=== PATIENT | female | born 1945 | race American Indian/Alaskan Native ===

== ENCOUNTER 2016-09-07 18:01 | Inpatient (IN) | payer MEDICARE ==
[2016-09-07] MEDS ORDERED: PROVENTIL IH ONE (18:28)
--- NOTE | 2016-09-07 18:46 | Emergency Department Report ---
Chief Complaint: Dyspnea/Respdistress Stated Complaint: DIFF BREATHING Time Seen by Provider: 09/07/16 18:42 - HPI History of Present Illness: 71 /o female complain of shortness of breath x 2 days .pt state she smoke cigarettes for more than 30 years.pt current on 02 at 2l at home .pt was current using albuterol inhaler without any relief . - ROS Review of Systems: per HPI - Exam Vital Signs: Vital Signs 09/07/16 18:12 Temperature 98.2 F Pulse Rate 24 L Respiratory 24 Rate Blood Pressure 172/93 O2 Sat by Pulse 86 Oximetry Physical Exam: GENERAL: The patient is well-developed and well-nourished. Patient is in NAD. HENT: Normocephalic. Atraumatic. Patient has moist mucous membranes. Throat: No erythema, swelling or exudates. EYES: Extraocular motions are intact, PERRL NECK: Supple. No meningitic signs are noted. There is no adenopathy noted. CHEST/LUNGS: wheezing, noted bilateral . There is no respiratory distress noted. HEART/CARDIOVASCULAR: Regular rate and rhythm. Normal S1 S2. No murmurs, rubs , clicks, or gallops. ABDOMEN: Abdomen is soft, nontender.. Bowel sounds normoactive. There is no abdominal distention. Negative rebound tenderness. : Deferred. SKIN: There is no rash. There is no edema. There is no diaphoresis. NEURO: The patient is A&Ox3. The patient has no focal neurologic deficits. MUSCULOSKELETAL: There is no tenderness or deformity. There is no limitation range of motion. PSYCH: Pt has appropriate mood and affect. MSE screening note: Focused history and physical exam performed. Due to findings the following was ordered: ED Disposition for MSE Condition: Stable
[2016-09-07 19:25] LABS: Basophils % (Auto) 0.8 % (0.0-1.8); Eosinophils % (Auto) 2.6 % (0.0-4.3); Hematocrit 42.1 % (30.3-42.9); Hemoglobin 13.8 gm/dl (10.1-14.3); Mean Corpuscular HGB Conc 33 % (30-34); Mean Corpuscular Hemoglobin 30 pg (28-32); Mean Corpuscular Volume 92 fl (79-97); Platelet Count 242 K/mm3 (140-440); Red Blood Count 4.58 M/mm3 (3.65-5.03); Red Cell Distribution Width 13.1 % (13.2-15.2); White Blood Count 13.5 K/mm3 (4.5-11.0)
[2016-09-07] MEDS ORDERED: XOPENEX IH ONE (19:29)
[2016-09-07] MEDS ORDERED: MAGNESIUM SULFATE 2GM/50ML 50 ML IV ONE (19:29)
--- NOTE | 2016-09-07 19:36 | Emergency Department Report ---
ED Shortness of Breath HPI - General Chief Complaint: Dyspnea/Respdistress Stated Complaint: DIFF BREATHING Time Seen by Provider: 09/07/16 19:22 Source: patient Mode of arrival: Wheelchair Limitations: No Limitations - History of Present Illness Initial Comments: 71-year-old female with past medical history of COPD without previous intubations presents to the hospital complaints of shortness of breath for the past 2-3 days. Patient using home nebulized treatments without relief. Positive cough productive of clear sputum. No fever reported. No pain reported. Patient is dependent on 2 L O2 as needed but most recently has been using it continuously. 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 Rich on the . Currently on prednisone 5 mg daily. PMD: Dr. Jackson - Related Data Home Medications Medication Instructions Recorded Confirmed Last Taken Cetirizine HCl [ZyrTEC] 10 mg PO DAILY PRN 09/22/14 09/07/16 Unknown Previous Rx's Medication Instructions Recorded Last Taken Type ALBUTEROL NEB's [Proventil 0.083% 2.5 mg INHALATION Q4-6H PRN #100 ml 09/25/14 Unknown Rx NEBS] Albuterol Sulfate [Proventil HFA] 1 - 2 puff IH Q4H PRN #1 hfa.aer.ad 09/25/14 Unknown Rx predniSONE [Deltasone] 60 mg PO QDAY #20 tablet 01/08/15 Unknown Rx Allergies Allergy/AdvReac Type Severity Reaction Status Date / Time tomato Allergy Unknown Verified 09/22/14 10:52 ipratropium bromide AdvReac Unknown Verified 01/03/15 07:11 [From [facility]] ED Review of Systems ROS: Stated complaint: DIFF BREATHING Other details as noted in HPI Comment: All other systems reviewed and negative Other: Constitutional: No fevers chills Eyes: No eye pain visual changes ENT: No ear pain or throat pain Neck: Denies pain Respiratory: As per HPI Cardiovascular: Denies chest pain, palpitations, syncope GI: Denies abdominal pain, nausea, vomiting, diarrhea : Denies dysuria, urinary frequency, or urgency Musculoskeletal: Denies back pain Skin: Denies rash, lesions, erythema Neurologic: Denies headache, numbness, weakness Psychiatric: Denies suicidal ideation, hallucinations ED Past Medical Hx - Past Medical History Hx Hypertension: Yes Hx Diabetes: Yes Hx Asthma: Yes Hx COPD: Yes - Surgical History Past Surgical History?: No - Social History Smoking Status: Former Smoker Substance Use Type: Alcohol - Medications Home Medications: Home Medications Medication Instructions Recorded Confirmed Last Taken Type Cetirizine HCl [ZyrTEC] 10 mg PO DAILY PRN 09/22/14 09/07/16 Unknown History ALBUTEROL NEB's [Proventil 0.083% 2.5 mg INHALATION Q4-6H PRN #100 ml 09/25/14 09/07/16 Unknown Rx NEBS] Albuterol Sulfate [Proventil HFA] 1 - 2 puff IH Q4H PRN #1 hfa.aer.ad 09/25/14 09/07/16 Unknown Rx predniSONE [Deltasone] 60 mg PO QDAY #20 tablet 01/08/15 09/07/16 Unknown Rx ED Physical Exam - General Limitations: No Limitations - Other Other exam information: General: No limitations, patient is alert in no acute distress Head exam: Atraumatic, normocephalic Eyes exam: Normal appearance, pupils equal reactive to light, extraocular movements intact ENT: Moist mucous membrane, normal oropharynx Neck exam: Normal inspection, full range of motion, no meningismus nontender Respiratory exam: Poor air movement, tachypnea, purse lip breathing, respiratory respiratory wheezing, accessory muscle use. (After albuterol 5 mg in the ED) Cardiovascular: Tachycardic regular rhythm Abdomen: Soft, nondistended, and nontender, with normal bowel sounds, no rebound, or guarding Extremity: Full range of motion normal inspection no deformity Back: Normal Inspection, full range of motion, no tenderness Neurologic: Alert, oriented x3, cranial nerves intact, no motor or sensory deficit Psychiatric: normal affect, normal mood Skin: Warm, dry, intact ED Course Vital Signs 09/07/16 09/07/16 09/07/16 18:12 19:00 19:20 Temperature 98.2 F Pulse Rate 24 L Pulse Rate [ 101 H 101 H Anterior Bilateral Throughout] Pulse Rate [ Posterior Bilateral Throughout] Respiratory 24 Rate Respiratory 28 H 28 H Rate [Anterior Bilateral Throughout] Respiratory Rate [Posterior Bilateral Throughout] Blood Pressure 172/93 Blood Pressure [Left] O2 Sat by Pulse 86 Oximetry 09/07/16 09/07/16 09/07/16 19:50 20:04 20:14 Temperature Pulse Rate 112 H Pulse Rate [ 110 H 109 H Anterior Bilateral Throughout] Pulse Rate [ 110 H 109 H Posterior Bilateral Throughout] Respiratory 16 Rate Respiratory 27 H 29 H Rate [Anterior Bilateral Throughout] Respiratory 27 H 29 H Rate [Posterior Bilateral Throughout] Blood Pressure Blood Pressure 171/81 [Left] O2 Sat by Pulse 100 Oximetry - Reevaluation(s) Reevaluation #1: 09/07/16 20:52 Patient treated with Solu-Medrol, Xopenex, albuterol, and magnesium in the ED with improvement in symptoms but still persistently wheezing requiring BiPAP support 09/07/16 20:52 ED Medical Decision Making - Lab Data Result diagrams: 09/07/16 18:59 09/07/16 18:59 Lab Results 09/07/16 09/07/16 09/07/16 Range/Units 18:59 18:59 18:59 WBC 13.5 H (4.5-11.0) K/mm3 RBC 4.58 (3.65-5.03) M/mm3 Hgb 13.8 (10.1-14.3) gm/dl Hct 42.1 (30.3-42.9) % MCV 92 (79-97) fl MCH 30 (28-32) pg MCHC 33 (30-34) % RDW 13.1 L (13.2-15.2) % Plt Count 242 (140-440) K/mm3 Lymph % (Auto) 18.6 (13.4-35.0) % [place] % (Auto) 7.1 (0.0-7.3) % Eos % (Auto) 2.6 (0.0-4.3) % Baso % (Auto) 0.8 (0.0-1.8) % Lymph # 2.5 (1.2-5.4) K/mm3 [place] # 1.0 H (0.0-0.8) K/mm3 Eos # 0.4 (0.0-0.4) K/mm3 Baso # 0.1 (0.0-0.1) K/mm3 Seg Neutrophils % 70.9 H (40.0-70.0) % Seg Neutrophils # 9.5 H (1.8-7.7) K/mm3 Sodium 140 (137-145) mmol/L Potassium 4.5 (3.6-5.0) mmol/L Chloride 98.2 (98-107) mmol/L Carbon Dioxide 29 (22-30) mmol/L Anion Gap 17 mmol/L BUN 10 (7-17) mg/dL Creatinine 0.6 L (0.7-1.2) mg/dL Estimated GFR > 60 ml/min BUN/Creatinine Ratio 16.66 % Glucose 110 H (65-100) mg/dL Calcium 9.6 (8.4-10.2) mg/dL Total Creatine Kinase 90 (30-135) units/L CK-MB (CK-2) 3.0 (0.0-4.0) ng/mL CK-MB (CK-2) Rel Index 3.3 (0-4) Troponin T < 0.010 (0.00-0.029) ng/mL - EKG Data -: EKG Interpreted by Me (sinus tach 114 but atrial enlargement low voltage QRS septal infarct) - EKG Data When compared to previous EKG there are: changes noted (compared to 01/03/2015 lateral QRS segment more positive at that time) - Radiology Data Radiology results: image reviewed (chest x-ray portable: No acute finding) - Medical Decision Making Plan to admit patient to the hospital for further management of acute COPD exacerbation and continue BiPAP support at this time - Differential Diagnosis COPD, pneumonia, bronchitis, CHF Critical Care Time: No Critical care attestation.: If time is entered above; I have spent that time in minutes in the direct care of this critically ill patient, excluding procedure time. ED Disposition Clinical Impression: Asthma exacerbation in COPD HTN (hypertension) Qualifiers: Hypertension type: essential hypertension Qualified Code(s): I10 - Essential ( primary) hypertension Disposition: OP ADMITTED IP TO THIS HOSP Is pt being admited?: Yes Condition: Stable Instructions: Hypertension (ED) Time of Disposition: 20:54 (Dr Echeverria/hosp)
[2016-09-07 19:43] LABS: BUN/Creatinine Ratio 16.66; Blood Urea Nitrogen 10 mg/dL (7-17); Calcium 9.6 mg/dL (8.4-10.2); Carbon Dioxide 29 mmol/L (22-30); Chloride 98.2 mmol/L (98-107); Glucose 110 mg/dL (65-100); Potassium 4.5 mmol/L (3.6-5.0); Sodium 140 mmol/L (137-145)
[2016-09-07 19:48] LABS: Creatine Kinase 90 units/L (30-135)
[2016-09-07 19:53] LABS: Anion Gap 17 mmol/L
--- NOTE | 2016-09-07 22:59 | History and Physical Report ---
History of Present Illness Date of examination: 09/07/16 History of present illness: 71-year-old woman history of hypertension, diabetes, COPD comes emergency room with complaints of shortness breath 2 days. She was recently treated for COPD exacerbation, she is on a tapered dose of steroids. She took several rounds of nebulizer treatments without any success Patient denies chest pain, palpitation, cough, abdominal pain, hematochezia, dysuria, frequency, focal weakness, dysarthria, fever chills, polydipsia polyuria, hot or cold intolerance, easy bruisability, or rash or bleeding from mucosal membrane, rhinorrhea, epistaxis, earache, tinnitus, blurry vision, eye discharge, anxiety, depression. Other review of systems negative PAST SURGICAL HISTORY: None SOCIAL HISTORY: Denies alcohol, tobacco, drugs FAMILY HISTORY: Hypertension Medications and Allergies Allergies Allergy/AdvReac Type Severity Reaction Status Date / Time tomato Allergy Unknown Verified 09/22/14 10:52 ipratropium bromide AdvReac Unknown Verified 01/03/15 07:11 [From [facility]] Home Medications Medication Instructions Recorded Confirmed Last Taken Type Cetirizine HCl [ZyrTEC] 10 mg PO DAILY PRN 09/22/14 09/07/16 Unknown History ALBUTEROL NEB's [Proventil 0.083% 2.5 mg INHALATION Q4-6H PRN #100 ml 09/25/14 09/07/16 Unknown Rx NEBS] Albuterol Sulfate [Proventil HFA] 1 - 2 puff IH Q4H PRN #1 hfa.aer.ad 09/25/14 09/07/16 Unknown Rx predniSONE [Deltasone] 60 mg PO QDAY #20 tablet 01/08/15 09/07/16 Unknown Rx Losartan 100 mg PO DAILY 09/07/16 09/07/16 Unknown History Zocor TAB 10 mg PO HS 09/07/16 09/07/16 Unknown History Exam - Physical Exam Narrative exam: Gen. appearance: Patient lying in bed, no apparent distress HEENT: Normocephalic, atraumatic, pupils equally round and reactive to light, extraocular movement intact, and no sclericterus,. No JVD or thyromegaly or nodule,neck supple, no carotid bruit ,mucous membranes moist, no exudate or erythema Heart: S1, S2, regular rate and rhythm Lungs: Wheezing bilaterally, breathing comfortable Abdomen: Positive bowel sounds, nontender, nondistended, no organomegaly Extremity: No edema, cyanosis, clubbing Skin: No rash, nodules, warm, dry Neuro: Oriented 3, cranial nerves II-12 intact, speech is fluent, motor and sensory intact - Constitutional Vitals: Temp Pulse Resp BP Pulse Ox 98.2 F 107 H 16 133/83 95 09/07/16 18:12 09/07/16 21:05 09/07/16 21:05 09/07/16 21:05 09/07/16 21:05 Results - Labs CBC & Chem 7: 09/08/16 05:05 09/08/16 05:05 Labs: Abnormal lab results 09/07/16 09/07/16 Range/Units 18:59 18:59 WBC 13.5 H (4.5-11.0) K/mm3 RDW 13.1 L (13.2-15.2) % [place] # 1.0 H (0.0-0.8) K/mm3 Seg Neutrophils % 70.9 H (40.0-70.0) % Seg Neutrophils # 9.5 H (1.8-7.7) K/mm3 Creatinine 0.6 L (0.7-1.2) mg/dL Glucose 110 H (65-100) mg/dL - Imaging and Cardiology EKG: image reviewed Chest x-ray: image reviewed Assessment and Plan COPD exacerbation Hypertension Diabetes type 2 Admits medicine Start high-dose IV steroids, nebulizer treatment, check cardiac enzymes Check fingersticks and initiate insulin sliding scale Continue appropriate outpatient medication and start DVT prophylaxis
[2016-09-08] MEDS ORDERED: ZOFRAN IV PRN (03:33)
[2016-09-08] MEDS ORDERED: TYLENOL PO PRN (03:33)
[2016-09-08] MEDS ORDERED: D50W (25GM) IV PRN (03:33)
[2016-09-08] MEDS ORDERED: MILK OF MAGNESIA PO PRN (03:33)
[2016-09-08] MEDS ORDERED: DULCOLAX PR PRN (03:33)
[2016-09-08 05:30] LABS: Basophils % (Auto) 0.5 % (0.0-1.8); Hematocrit 39.6 % (30.3-42.9); Hemoglobin 13.1 gm/dl (10.1-14.3); Mean Corpuscular HGB Conc 33 % (30-34); Mean Corpuscular Hemoglobin 30 pg (28-32); Mean Corpuscular Volume 91 fl (79-97); Platelet Count 209 K/mm3 (140-440); Red Blood Count 4.34 M/mm3 (3.65-5.03); Red Cell Distribution Width 13.3 % (13.2-15.2); White Blood Count 8.2 K/mm3 (4.5-11.0)
[2016-09-08 05:46] LABS: Blood Urea Nitrogen 14 mg/dL (7-17); Calcium 9.2 mg/dL (8.4-10.2); Carbon Dioxide 31 mmol/L (22-30); Chloride 97.8 mmol/L (98-107); Glucose 197 mg/dL (65-100); Potassium 4.7 mmol/L (3.6-5.0); Sodium 139 mmol/L (137-145)
[2016-09-08 05:47] LABS: Creatine Kinase MB 3.1 ng/mL (0.0-4.0)
[2016-09-08 05:50] LABS: Creatine Kinase 72 units/L (30-135)
[2016-09-08 06:01] LABS: Anion Gap 15 mmol/L
[2016-09-08] MEDS: NOVOLOG SUB-Q SCH ×4 (08:00→22:51)
--- NOTE | 2016-09-08 08:19 | Progress Note ---
Assessment and Plan Assessment and plan: 1-year-old woman history of hypertension, diabetes, COPD comes emergency room with complaints of shortness breath 2 days. She was recently treated for COPD exacerbation, she is on a tapered dose of steroids. She took several rounds of nebulizer treatments without any success Patient denies chest pain, palpitation, cough, abdominal pain, hematochezia, dysuria, frequency, focal weakness, dysarthria, fever chills, polydipsia polyuria, hot or cold intolerance, easy bruisability, or rash or bleeding from mucosal membrane, rhinorrhea, epistaxis, earache, tinnitus, blurry vision, eye discharge, anxiety, depression. Other review of systems negative * COPD Exacerbation * Continue high dose steroid, cxr reviewed, no evidence of infection. * Received magnesium sulfate in the ED also was on BiPAP which is on standby. * Question post nasal drip syndrome. Will add inhaled corticosteroid. * Pulmonary consultation follows with Dr. Rich's group. * Uncontrolled HTN * Medication reconcilled. Restarted home dose of Losartan. Added PRN Hydralazine * Diabetes Mellitus type 2-Uncontrolled * Due to steriods, will continue with insuline coverage. Adjust as needed * Leukocytosis- Resolved * Chronic rhinorrhea * Acute on chronic hypoxic respiratory failure * Chronically on oxygen at 2 L per nasal cannula. We'll continue oxygen at this time and taper down to normal level for her. * DVT/GI prophylaxis * Case discussed in detail with nursing staff and patient. History Interval history: f/u COPD exacerbation Patient seen and examined this morning in [id number] respiratory distress secondary to COPD exacerbation. Reports mild improvement compared to yesterday and unable to speak although not complete sentences still. Denies any fever, denies any sick contact, reports chronic rhinorrhea Denies any chest pain, nausea, vomiting, diarrhea No fever noted blood pressure controlled No adverse events reported to me by nursing staff Hospitalist Physical - Physical exam Narrative exam: VITAL SIGNS: Reviewed. GENERAL: The patient appeared well nourished and normally developed. In mild respiratory distress Vital signs as documented. HEAD: No signs of head trauma. EYES: Pupils are equal. Extraocular motions intact. EARS: Hearing grossly intact. MOUTH: Oropharynx is normal. NECK: No adenopathy, no JVD. CHEST: Chest with expiratory wheezing bilaterally no rales or rhonchi. CARDIAC: Regular rate and rhythm. S1 and S2, without murmurs, gallops, or rubs. VASCULAR: No Edema. Peripheral pulses normal and equal in all extremities. ABDOMEN: Soft, without detectable tenderness. No sign of distention. No rebound or guarding, and no masses palpated. Bowel Sounds normal. MUSCULOSKELETAL: Good range of motion of all major joints. Extremities without clubbing, cyanosis or edema. NEUROLOGIC EXAM: Alert and oriented x 3. No focal sensory or strength deficits. Speech normal. Follows commands. PSYCHIATRIC: Mood normal. SKIN: Age appropriate wrinkles and blemishes. - Constitutional Vitals: Temp Pulse Resp BP Pulse Ox 97.3 F L 80 16 178/77 98 09/08/16 07:00 09/08/16 07:00 09/08/16 07:00 09/08/16 07:00 09/08/16 07:00 Results - Labs CBC & Chem 7: 09/08/16 05:05 09/08/16 05:05 Labs: Laboratory Last Values WBC 8.2 K/mm3 (4.5-11.0) 09/08/16 05:05 RBC 4.34 M/mm3 (3.65-5.03) 09/08/16 05:05 Hgb 13.1 gm/dl (10.1-14.3) 09/08/16 05:05 Hct 39.6 % (30.3-42.9) 09/08/16 05:05 MCV 91 fl (79-97) 09/08/16 05:05 MCH 30 pg (28-32) 09/08/16 05:05 MCHC 33 % (30-34) 09/08/16 05:05 RDW 13.3 % (13.2-15.2) 09/08/16 05:05 Plt Count 209 K/mm3 (140-440) 09/08/16 05:05 Lymph % (Auto) 10.6 % (13.4-35.0) L 09/08/16 05:05 [place] % (Auto) 4.6 % (0.0-7.3) 09/08/16 05:05 Eos % (Auto) 0.0 % (0.0-4.3) 09/08/16 05:05 Baso % (Auto) 0.5 % (0.0-1.8) 09/08/16 05:05 Lymph # 0.9 K/mm3 (1.2-5.4) L 09/08/16 05:05 [place] # 0.4 K/mm3 (0.0-0.8) 09/08/16 05:05 Eos # 0.0 K/mm3 (0.0-0.4) 09/08/16 05:05 Baso # 0.0 K/mm3 (0.0-0.1) 09/08/16 05:05 Seg Neutrophils % 84.3 % (40.0-70.0) H 09/08/16 05:05 Seg Neutrophils # 6.9 K/mm3 (1.8-7.7) 09/08/16 05:05 Sodium 139 mmol/L (137-145) 09/08/16 05:05 Potassium 4.7 mmol/L (3.6-5.0) 09/08/16 05:05 Chloride 97.8 mmol/L (98-107) L 09/08/16 05:05 Carbon Dioxide 31 mmol/L (22-30) H 09/08/16 05:05 Anion Gap 15 mmol/L 09/08/16 05:05 BUN 14 mg/dL (7-17) 09/08/16 05:05 Creatinine 0.7 mg/dL (0.7-1.2) 09/08/16 05:05 Estimated GFR > 60 ml/min 09/08/16 05:05 BUN/Creatinine Ratio 20.00 % 09/08/16 05:05 Glucose 197 mg/dL (65-100) H 09/08/16 05:05 POC Glucose 152 (70-105) H 09/08/16 07:17 Calcium 9.2 mg/dL (8.4-10.2) 09/08/16 05:05 Total Creatine Kinase 72 units/L (30-135) 09/08/16 05:05 CK-MB (CK-2) 3.1 ng/mL (0.0-4.0) 09/08/16 05:05 CK-MB (CK-2) Rel Index 4.3 (0-4) H 09/08/16 05:05 Troponin T < 0.010 ng/mL (0.00-0.029) 09/08/16 05:05 - Imaging and Cardiology EKG: image reviewed (personally reviewed sinus tachycardia) Chest x-ray: image reviewed (personally reviewed no evidence of infectious process)
[2016-09-08] MEDS ORDERED: APRESOLINE IV PRN (09:00)
[2016-09-08] MEDS: PROVENTIL IH SCH ×4 (09:10→23:39)
[2016-09-08] MEDS: COZAAR PO SCH (10:00)
[2016-09-08] MEDS: LOVENOX SUB-Q SCH (10:00)
--- NOTE | 2016-09-08 10:00 | XRay Report ---
AP CHEST :09/07/16 CLINICAL: Shortness of breath and wheezing. COMPARISON:01/03/15 FINDINGS: Normal heart and pulmonary vasculature. The lungs are normally expanded and clear. The bones and soft tissues are normal. IMPRESSION: Normal chest.
[2016-09-08 11:52] LABS: Creatine Kinase MB 2.9 ng/mL (0.0-4.0)
[2016-09-08 11:55] LABS: Creatine Kinase 76 units/L (30-135)
[2016-09-08] MEDS ORDERED: PNEUMOVAX 23 IM ONE (12:00)
--- NOTE | 2016-09-08 21:05 | Admit Criteria Form ---
Admission Criteria Documentation: COPD Clinical Indications for Admission to Inpatient Care (Place 'X' for any and all applicable criteria): Admission is indicated for ANY ONE of the following (1)(2)(3): [ X]I. Acute exacerbation by high-risk comorbidity (e.g., pneumonia, dysrhythmia, heart failure, pleural effusion, pneumothorax) or severe underlying COPD (e.g., steroid dependent) [ ]II. Inpatient admission required rather than observation care (see Chronic Obstructive Pulmonary Disease: Observation Care) because of ANY ONE of the following: [ ]a) New or pre-existing signs or symptoms of COPD (eg, dyspnea or Tachypnea at rest or with minimal activity) that persist despite outpatient and observation care treatment [ ]b) New-onset hypoxemia (room air SaO2 less than 90%, PO2 less than 60 mm Hg (8.0 kPa)) that persists despite outpatient and observation care treatment [ ]c) Worsening of pre-existing hypoxemia (eg, new or increased requirement for supplemental oxygen to maintain oxygenation at baseline level) that persists despite outpatient and observation care treatment, with oxygen treatment needs performable only in acute inpatient setting [ ]d) Hypercarbia (PCO2 greater than 40 mm Hg (5.3 kPa))-induced respiratory acidosis (pH less than 7.35) that persists despite outpatient and observation care treatment [ ]e) Supplemental oxygen or respiratory treatments for over 24 hours that are performable only in acute inpatient setting [ ]f) Chest tube placement with active evacuation (e.g., suction, drainage) (5) [ ]g) Other condition, treatment or monitoring requiring inpatient admission [ ]III. Planned invasive surgical or diagnostic procedures requiring acute- care hospitalization [ ]IV. Acute respiratory failure (e.g., uncompensated hypercarbia, severe hypoxemia) [ ]V. Severe comorbid condition (e.g., severe steroid myopathy, acute vertebral fracture) that has acutely worsened pulmonary function [ ]. Confusion state, lethargy, obtundation, stupor or coma Extended stay beyond goal length of stay may be needed for (31)(32): [ ]a ) Respiratory Failure. [ ]b) Severe or persisting hypoxemia or hypercarbia [ ]c) Severe or persistent dyspnea [ ]d) Comorbidities (e.g. chronic heart failure, atrial fibrillation with rapid response, pneumonia) [ ]e) Malnutrition The original [facility] content created by [facility] has been revised. The portions of the content which have been revised are identified through the use of italic text or in bold, and [facility] has neither reviewed nor approved the modified material. All other unmodified content is copyright [facility]. Please see references footnoted in the original [facility] edition 2016 Admission Criteria Met: Yes
[2016-09-09] MEDS: PROVENTIL IH SCH ×4 (00:59→20:52)
--- NOTE | 2016-09-09 08:29 | Progress Note ---
Assessment and Plan Assessment and plan: 1-year-old woman history of hypertension, diabetes, COPD comes emergency room with complaints of shortness breath 2 days. She was recently treated for COPD exacerbation, she is on a tapered dose of steroids. She took several rounds of nebulizer treatments without any success Patient denies chest pain, palpitation, cough, abdominal pain, hematochezia, dysuria, frequency, focal weakness, dysarthria, fever chills, polydipsia polyuria, hot or cold intolerance, easy bruisability, or rash or bleeding from mucosal membrane, rhinorrhea, epistaxis, earache, tinnitus, blurry vision, eye discharge, anxiety, depression. Other review of systems negative * COPD Exacerbation * Taper steroids to 40 mg every 8 hours, cxr reviewed, no evidence of infection. Patient still with some shortness of breath anticipate at least a day or 2 more and hospitalization treatment * Received magnesium sulfate in the ED also was on BiPAP which is on standby. * Question post nasal drip syndrome. Will add inhaled corticosteroid. * Pulmonary consultation follows with Dr. Rich's group. * Uncontrolled HTN * Per patient takes 300 mg of losartan at home. We'll continue 100 mg where on here and add hydralazine 50 mg every 8 hours.. Medication reconcilled. Continue PRN Hydralazine * Diabetes Mellitus type 2-Uncontrolled * Due to steriods, will continue with insuline coverage. Adjust as needed * Leukocytosis- Resolved * Chronic rhinorrhea * Suggest inhaled corticosteroids discharge * Acute on chronic hypoxic respiratory failure * Chronically on oxygen at 2 L per nasal cannula. We'll continue oxygen at this time and taper down to normal level for her. * DVT/GI prophylaxis * Case discussed in detail with nursing staff and patient. History Interval history: f/u COPD exacerbation Patient seen and examined this morning, reports significant improvement in the respiratory status although still wheezing still expresses some mild shortness of breath. She is able to complete her sentences at this time. Discussed her blood pressure she states she takes 300MG OF LOSARTAN DAILY AND STILL MAINTAINS A HIGH BLOOD PRESSURE SYSTOLIC OF 150S. Denies any fever, denies any sick contact, reports chronic rhinorrhea Denies any chest pain, nausea, vomiting, diarrhea No fever noted blood pressure controlled No adverse events reported to me by nursing staff Hospitalist Physical - Physical exam Narrative exam: VITAL SIGNS: Reviewed. GENERAL: The patient appeared well nourished and normally developed. In mild respiratory distress Vital signs as documented. HEAD: No signs of head trauma. EYES: Pupils are equal. Extraocular motions intact. EARS: Hearing grossly intact. MOUTH: Oropharynx is normal. NECK: No adenopathy, no JVD. CHEST: Chest with expiratory wheezing bilaterally improved compared to yesterday. No rales or rhonchi. CARDIAC: Regular rate and rhythm. S1 and S2, without murmurs, gallops, or rubs. VASCULAR: No Edema. Peripheral pulses normal and equal in all extremities. ABDOMEN: Soft, without detectable tenderness. No sign of distention. No rebound or guarding, and no masses palpated. Bowel Sounds normal. MUSCULOSKELETAL: Good range of motion of all major joints. Extremities without clubbing, cyanosis or edema. NEUROLOGIC EXAM: Alert and oriented x 3. No focal sensory or strength deficits. Speech normal. Follows commands. PSYCHIATRIC: Mood normal. SKIN: Age appropriate wrinkles and blemishes. - Constitutional Vitals: Temp Pulse Resp BP Pulse Ox 97.7 F 99 H 18 187/79 97 09/09/16 07:30 09/09/16 08:17 09/09/16 08:17 09/09/16 08:05 09/09/16 08:05 Results - Labs CBC & Chem 7: 09/08/16 05:05 09/08/16 05:05 Labs: Laboratory Last Values WBC 8.2 K/mm3 (4.5-11.0) 09/08/16 05:05 RBC 4.34 M/mm3 (3.65-5.03) 09/08/16 05:05 Hgb 13.1 gm/dl (10.1-14.3) 09/08/16 05:05 Hct 39.6 % (30.3-42.9) 09/08/16 05:05 MCV 91 fl (79-97) 09/08/16 05:05 MCH 30 pg (28-32) 09/08/16 05:05 MCHC 33 % (30-34) 09/08/16 05:05 RDW 13.3 % (13.2-15.2) 09/08/16 05:05 Plt Count 209 K/mm3 (140-440) 09/08/16 05:05 Lymph % (Auto) 10.6 % (13.4-35.0) L 09/08/16 05:05 [place] % (Auto) 4.6 % (0.0-7.3) 09/08/16 05:05 Eos % (Auto) 0.0 % (0.0-4.3) 09/08/16 05:05 Baso % (Auto) 0.5 % (0.0-1.8) 09/08/16 05:05 Lymph # 0.9 K/mm3 (1.2-5.4) L 09/08/16 05:05 [place] # 0.4 K/mm3 (0.0-0.8) 09/08/16 05:05 Eos # 0.0 K/mm3 (0.0-0.4) 09/08/16 05:05 Baso # 0.0 K/mm3 (0.0-0.1) 09/08/16 05:05 Seg Neutrophils % 84.3 % (40.0-70.0) H 09/08/16 05:05 Seg Neutrophils # 6.9 K/mm3 (1.8-7.7) 09/08/16 05:05 Sodium 139 mmol/L (137-145) 09/08/16 05:05 Potassium 4.7 mmol/L (3.6-5.0) 09/08/16 05:05 Chloride 97.8 mmol/L (98-107) L 09/08/16 05:05 Carbon Dioxide 31 mmol/L (22-30) H 09/08/16 05:05 Anion Gap 15 mmol/L 09/08/16 05:05 BUN 14 mg/dL (7-17) 09/08/16 05:05 Creatinine 0.7 mg/dL (0.7-1.2) 09/08/16 05:05 Estimated GFR > 60 ml/min 09/08/16 05:05 BUN/Creatinine Ratio 20.00 % 09/08/16 05:05 Glucose 197 mg/dL (65-100) H 09/08/16 05:05 POC Glucose 161 (70-105) H 09/09/16 07:01 Calcium 9.2 mg/dL (8.4-10.2) 09/08/16 05:05 Total Creatine Kinase 76 units/L (30-135) 09/08/16 10:54 CK-MB (CK-2) 2.9 ng/mL (0.0-4.0) 09/08/16 10:54 CK-MB (CK-2) Rel Index 3.8 (0-4) 09/08/16 10:54 Troponin T < 0.010 ng/mL (0.00-0.029) 09/08/16 10:54
[2016-09-09] MEDS: NOVOLOG SUB-Q SCH ×4 (08:30→22:44)
--- NOTE | 2016-09-09 10:46 | Consultation ---
History of Present Illness Reason for consult: dyspnea, COPD History of present illness: This is a female with a known hx of copd and htn who was recently treated as an outpatient for copd exacerbation a few weeks ago. She had been improving but got more SOB which did not improve with nebulizer treatment resulted in her comoing to the ER for evaluation. She has been on neb tx and antibiotics since being in the ER She is still sob but improved refusing bipap and pneumonia vaccination Past History Past Medical History: COPD, hypertension Past Surgical History: No surgical history Social history: other (lives at home hx of tobacco abuse) Medications and Allergies Allergies Allergy/AdvReac Type Severity Reaction Status Date / Time tomato Allergy Unknown Verified 09/22/14 10:52 ipratropium bromide AdvReac Unknown Verified 01/03/15 07:11 [From Atrovent] Home Medications Medication Instructions Recorded Confirmed Last Taken Type Cetirizine HCl [ZyrTEC] 10 mg PO DAILY PRN 09/22/14 09/07/16 Unknown History ALBUTEROL NEB's [Proventil 0.083% 2.5 mg INHALATION Q4-6H PRN #100 ml 09/25/14 09/07/16 Unknown Rx NEBS] Albuterol Sulfate [Proventil HFA] 1 - 2 puff IH Q4H PRN #1 hfa.aer.[id number] 09/25/14 09/07/16 Unknown Rx predniSONE [Deltasone] 60 mg PO QDAY #20 tablet 01/08/15 09/07/16 Unknown Rx Losartan 100 mg PO DAILY 09/07/16 09/07/16 Unknown History Zocor TAB 10 mg PO HS 09/07/16 09/07/16 Unknown History Active Meds: Active Medications Acetaminophen (Tylenol) 650 mg PO Q4H PRN PRN Reason: Pain MILD(1-3)/Fever >100.5/LUCIANO Albuterol (Proventil) 5 mg IH Q4HRT PRN PRN Reason: Wheezing Albuterol (Proventil) 2.5 mg IH Q6HRT TIP Last Admin: 09/09/16 08:02 Dose: 2.5 mg Bisacodyl (Dulcolax) 10 mg [place] QDAY PRN PRN Reason: Constipation unrelieved by MOM Dextrose (D50w (25gm)) 50 ml IV PRN PRN PRN Reason: Hypoglycemia Enoxaparin Sodium (Lovenox) 40 mg SUB-Q QDAY [facility] Last Admin: 09/08/16 10:00 Dose: 40 mg Hydralazine HCl (Apresoline) 10 mg IV Q4HR PRN PRN Reason: hypertension Last Admin: 09/09/16 08:05 Dose: 10 mg Hydralazine HCl (Apresoline) 50 mg PO Q8HR [facility] Insulin Aspart (Novolog) 0 units SUB-Q ACHS TIP PRN Reason: Protocol Last Admin: 09/09/16 08:30 Dose: 3 units Losartan Potassium (Cozaar) 100 mg PO QDAY TIP Last Admin: 09/08/16 10:00 Dose: 100 mg Magnesium Hydroxide (Milk Of Magnesia) 30 ml PO Q4H PRN PRN Reason: Constipation Methylprednisolone Sodium Succinate (Solu-Medrol) 40 mg IV Q8HR [facility] Ondansetron HCl (Zofran) 4 mg IV Q8H PRN PRN Reason: N/V unrelieved by Reglan Review of Systems Constitutional: fever, weakness, poor appetite Ears, nose, mouth and throat: nasal congestion, nasal discharge, post-nasal drip Respiratory: cough with sputum, shortness of breath, congestion, wheezing, home oxygen Musculoskeletal: morning stiffness Physical Examination Vital signs: Vital Signs Temp Pulse Resp BP Pulse Ox 98.2 F 24 L 24 172/93 86 09/07/16 18:12 09/07/16 18:12 09/07/16 18:12 09/07/16 18:12 09/07/16 18:12 General appearance: alert Eyes: non-icteric ENT: oropharynx moist Neck: supple Ascultation: Bilateral: wheezes Cardiovascular: regular rate and rhythm Gastrointestinal: normoactive bowel sounds, soft, non-distended Integumentary: normal Extremities: no cyanosis Results - Laboratory Findings CBC and BMP: 09/08/16 05:05 09/08/16 05:05 Abnormal lab findings: Abnormal Labs 09/08/16 09/08/16 09/08/16 05:05 05:05 05:05 Lymph % (Auto) 10.6 L Lymph # 0.9 L Seg Neutrophils % 84.3 H Chloride 97.8 L Carbon Dioxide 31 H Glucose 197 H POC Glucose CK-MB (CK-2) Rel Index 4.3 H 09/08/16 09/08/16 09/08/16 07:17 11:15 15:59 Lymph % (Auto) Lymph # Seg Neutrophils % Chloride Carbon Dioxide Glucose POC Glucose 152 H 194 H 188 H CK-MB (CK-2) Rel Index 09/08/16 09/09/16 20:57 07:01 Lymph % (Auto) Lymph # Seg Neutrophils % Chloride Carbon Dioxide Glucose POC Glucose 196 H 161 H CK-MB (CK-2) Rel Index - Diagnostic Findings Chest x-ray: report reviewed Assessment and Plan - Patient Problems (1) Asthma exacerbation in COPD Current Visit: Yes Status: Acute (2) HTN (hypertension) Current Visit: Yes Status: Chronic Qualifiers: Hypertension type: essential hypertension Qualified Code(s): I10 - Essential (primary) hypertension (3) COPD exacerbation Current Visit: No Status: Acute (4) Acute respiratory failure with hypoxia Current Visit: Yes Status: Acute (5) Acute bronchitis Current Visit: Yes Status: Acute (6) Acute bronchitis due to infection Current Visit: Yes Status: Acute
[2016-09-09] MEDS: APRESOLINE PO SCH ×3 (11:08→22:43)
[2016-09-09] MEDS: COZAAR PO SCH (11:09)
[2016-09-09] MEDS: LOVENOX SUB-Q SCH (11:11)
[2016-09-09] MEDS: FLONASE NS SCH (15:01)
[2016-09-09] MEDS: ZITHROMAX PO SCH (15:03)
[2016-09-10] MEDS: PROVENTIL IH SCH ×4 (01:43→19:25)
[2016-09-10] MEDS: APRESOLINE PO SCH ×3 (05:55→23:07)
--- NOTE | 2016-09-10 08:23 | Progress Note ---
Assessment and Plan Assessment and plan: 1-year-old woman history of hypertension, diabetes, COPD comes emergency room with complaints of shortness breath 2 days. She was recently treated for COPD exacerbation, she is on a tapered dose of steroids. She took several rounds of nebulizer treatments without any success Patient denies chest pain, palpitation, cough, abdominal pain, hematochezia, dysuria, frequency, focal weakness, dysarthria, fever chills, polydipsia polyuria, hot or cold intolerance, easy bruisability, or rash or bleeding from mucosal membrane, rhinorrhea, epistaxis, earache, tinnitus, blurry vision, eye discharge, anxiety, depression. Other review of systems negative * COPD Exacerbation * Taper steroids to 40 mg every 12 hours, cxr reviewed, no evidence of infection. Patient still with some shortness of breath anticipate at least a day more and hospitalization treatment * Received magnesium sulfate in the ED also was on BiPAP which is on standby. * On abx * Question post nasal drip syndrome. Will add inhaled corticosteroid. * Pulmonary input noted. patient refused vaccination. although agreed to use the BIPAP yesterday. * Uncontrolled HTN * Per patient takes 300 mg of losartan at home. Improved with the addition hydralazine 50 mg every 8 hours. Continue Losartan 100mg Medication reconciled. Continue PRN Hydralazine * Diabetes Mellitus type 2-Uncontrolled * Due to steroids, will continue with insulin coverage. Adjust as needed * Leukocytosis- Resolved * Chronic rhinorrhea * started on inhaled nasal spray * Acute on chronic hypoxic respiratory failure * Chronically on oxygen at 2 L per nasal cannula. We'll continue oxygen at this time and taper down to normal level for her. * DVT/GI prophylaxis * Case discussed in detail with nursing staff and patient. History Interval history: f/u COPD exacerbation Patient seen and examined this morning, reports significant improvement in the respiratory status although still wheezing still expresses some mild shortness of breath. She is able to complete her sentences at this time. BP improved. Denies any fever, denies any sick contact, reports chronic rhinorrhea Denies any chest pain, nausea, vomiting, diarrhea No fever noted blood pressure controlled No adverse events reported to me by nursing staff Hospitalist Physical - Physical exam Narrative exam: VITAL SIGNS: Reviewed. GENERAL: The patient appeared well nourished and normally developed. In mild respiratory distress Vital signs as documented. HEAD: No signs of head trauma. EYES: Pupils are equal. Extraocular motions intact. EARS: Hearing grossly intact. MOUTH: Oropharynx is normal. NECK: No adenopathy, no JVD. CHEST: Chest with expiratory wheezing bilaterally improving. No rales or rhonchi. CARDIAC: Regular rate and rhythm. S1 and S2, without murmurs, gallops, or rubs. VASCULAR: No Edema. Peripheral pulses normal and equal in all extremities. ABDOMEN: Soft, without detectable tenderness. No sign of distention. No rebound or guarding, and no masses palpated. Bowel Sounds normal. MUSCULOSKELETAL: Good range of motion of all major joints. Extremities without clubbing, cyanosis or edema. NEUROLOGIC EXAM: Alert and oriented x 3. No focal sensory or strength deficits. Speech normal. Follows commands. PSYCHIATRIC: Mood normal. SKIN: Age appropriate wrinkles and blemishes. - Constitutional Vitals: Temp Pulse Resp BP Pulse Ox 98.1 F 75 18 131/65 100 09/10/16 00:00 09/10/16 05:55 09/10/16 02:00 09/10/16 05:55 09/10/16 00:00 Results - Labs CBC & Chem 7: 09/08/16 05:05 09/08/16 05:05 Labs: Laboratory Last Values WBC 8.2 K/mm3 (4.5-11.0) 09/08/16 05:05 RBC 4.34 M/mm3 (3.65-5.03) 09/08/16 05:05 Hgb 13.1 gm/dl (10.1-14.3) 09/08/16 05:05 Hct 39.6 % (30.3-42.9) 09/08/16 05:05 MCV 91 fl (79-97) 09/08/16 05:05 MCH 30 pg (28-32) 09/08/16 05:05 MCHC 33 % (30-34) 09/08/16 05:05 RDW 13.3 % (13.2-15.2) 09/08/16 05:05 Plt Count 209 K/mm3 (140-440) 09/08/16 05:05 Lymph % (Auto) 10.6 % (13.4-35.0) L 09/08/16 05:05 [place] % (Auto) 4.6 % (0.0-7.3) 09/08/16 05:05 Eos % (Auto) 0.0 % (0.0-4.3) 09/08/16 05:05 Baso % (Auto) 0.5 % (0.0-1.8) 09/08/16 05:05 Lymph # 0.9 K/mm3 (1.2-5.4) L 09/08/16 05:05 [place] # 0.4 K/mm3 (0.0-0.8) 09/08/16 05:05 Eos # 0.0 K/mm3 (0.0-0.4) 09/08/16 05:05 Baso # 0.0 K/mm3 (0.0-0.1) 09/08/16 05:05 Seg Neutrophils % 84.3 % (40.0-70.0) H 09/08/16 05:05 Seg Neutrophils # 6.9 K/mm3 (1.8-7.7) 09/08/16 05:05 Sodium 139 mmol/L (137-145) 09/08/16 05:05 Potassium 4.7 mmol/L (3.6-5.0) 09/08/16 05:05 Chloride 97.8 mmol/L (98-107) L 09/08/16 05:05 Carbon Dioxide 31 mmol/L (22-30) H 09/08/16 05:05 Anion Gap 15 mmol/L 09/08/16 05:05 BUN 14 mg/dL (7-17) 09/08/16 05:05 Creatinine 0.7 mg/dL (0.7-1.2) 09/08/16 05:05 Estimated GFR > 60 ml/min 09/08/16 05:05 BUN/Creatinine Ratio 20.00 % 09/08/16 05:05 Glucose 197 mg/dL (65-100) H 09/08/16 05:05 POC Glucose 175 (70-105) H 09/10/16 08:03 Calcium 9.2 mg/dL (8.4-10.2) 09/08/16 05:05 Total Creatine Kinase 76 units/L (30-135) 09/08/16 10:54 CK-MB (CK-2) 2.9 ng/mL (0.0-4.0) 09/08/16 10:54 CK-MB (CK-2) Rel Index 3.8 (0-4) 09/08/16 10:54 Troponin T < 0.010 ng/mL (0.00-0.029) 09/08/16 10:54
[2016-09-10] MEDS: COZAAR PO SCH (09:02)
[2016-09-10] MEDS: NOVOLOG SUB-Q SCH ×4 (09:02→23:23)
[2016-09-10] MEDS: ZITHROMAX PO SCH (09:03)
[2016-09-10] MEDS: LOVENOX SUB-Q SCH (09:03)
[2016-09-10] MEDS: PROVENTIL IH PRN (09:07)
--- NOTE | 2016-09-10 11:15 | Progress Note ---
Assessment and Plan 71 y/o female with acute respiratory failure thought secondary to COPD exacerbation. 1. Agree with dropping of steroids. Will need prolonged prednisone taper at discharge. Would not suggest a medrol dose pack as this would not be enough 2. Follow up with Hilario at discharge. She can determine if patient requires sleep study 3. Would not place on bipap therapy tonight. Will discontinue. If patient is worse in am, will repeat ABG and see if she qualifies for home PPV. by worse I mean more short of breath, with hypercapnea and potential hypoxemia. 4. Will continue to follow along with you. Subjective Date of service: 09/10/16 Interval history: Wore bipap last night. Feels better today. Has oxygen already at home that she wears at night. Steroids weaned to q12. Remainder is negative. Of note, patient note on positive pressure ventilation at night at home. Follows with Hilario. Objective Vital Signs - 12hr 09/10/16 09/10/16 09/10/16 00:00 01:45 02:00 Temperature 98.1 F Pulse Rate Pulse Rate [ 91 H 94 H Posterior Bilateral Throughout] Pulse Rate [ 89 Right Radial] Respiratory 24 Rate Respiratory 19 18 Rate [Posterior Bilateral Throughout] Blood Pressure Blood Pressure 112/64 [Right Arm] O2 Sat by Pulse 100 Oximetry 09/10/16 09/10/16 09/10/16 05:55 07:45 08:00 Temperature 98.1 F Pulse Rate 75 Pulse Rate [ 96 H 99 H Posterior Bilateral Throughout] Pulse Rate [ 101 H Right Radial] Respiratory 20 Rate Respiratory 18 18 Rate [Posterior Bilateral Throughout] Blood Pressure 131/65 Blood Pressure 140/83 [Right Arm] O2 Sat by Pulse 98 Oximetry 09/10/16 09/10/16 09:02 09:38 Temperature Pulse Rate 101 H Pulse Rate [ Posterior Bilateral Throughout] Pulse Rate [ Right Radial] Respiratory Rate Respiratory Rate [Posterior Bilateral Throughout] Blood Pressure 140/83 Blood Pressure [Right Arm] O2 Sat by Pulse 99 Oximetry Constitutional: alert Eyes: non-icteric ENT: oropharynx moist Neck: supple Ascultation: Bilateral: wheezes Cardiovascular: regular rate and rhythm Gastrointestinal: normoactive bowel sounds, soft, non-distended Integumentary: normal Extremities: no cyanosis CBC and BMP: 09/08/16 05:05 09/08/16 05:05 Abnormal lab findings: Abnormal Labs 09/08/16 09/08/16 09/08/16 05:05 05:05 05:05 Lymph % (Auto) 10.6 L Lymph # 0.9 L Seg Neutrophils % 84.3 H Chloride 97.8 L Carbon Dioxide 31 H Glucose 197 H POC Glucose CK-MB (CK-2) Rel Index 4.3 H 09/08/16 09/08/16 09/08/16 07:17 11:15 15:59 Lymph % (Auto) Lymph # Seg Neutrophils % Chloride Carbon Dioxide Glucose POC Glucose 152 H 194 H 188 H CK-MB (CK-2) Rel Index 09/08/16 09/09/16 09/09/16 20:57 07:01 11:52 Lymph % (Auto) Lymph # Seg Neutrophils % Chloride Carbon Dioxide Glucose POC Glucose 196 H 161 H 149 H CK-MB (CK-2) Rel Index 09/09/16 09/09/16 09/10/16 16:09 20:49 08:03 Lymph % (Auto) Lymph # Seg Neutrophils % Chloride Carbon Dioxide Glucose POC Glucose 138 H 170 H 175 H CK-MB (CK-2) Rel Index
[2016-09-10] MEDS: FLONASE NS SCH (14:20)
[2016-09-11] MEDS: PROVENTIL IH SCH ×3 (02:21→13:01)
[2016-09-11] MEDS: APRESOLINE PO SCH (06:00)
[2016-09-11 08:21] VITALS: BP 142/64
--- NOTE | 2016-09-11 08:57 | Discharge Summary ---
Providers - Providers Date of Admission: 09/07/16 22:47 Date of discharge: 09/11/16 Attending physician: PAPITO OCHOA MD 09/08/16 08:37 Consult to Physician [CONS] Routine Consulting Provider: RENATE JIMENEZ Reason For Exam: copd exacerbation Place consult to:: ANS. SERVICE Notified:: YES Phone number called:: [phone] Was contact made?: Yes If yes, spoke with:: BRUNILDA Time called:: 21:00 Primary care physician: [employer] Hospitalization Reason for admission: copd exacerbation Condition: Stable Hospital course: 71-year-old woman history of hypertension, diabetes, COPD comes emergency room with complaints of shortness breath 2 days. She was recently treated for COPD exacerbation, she is on a tapered dose of steroids. She took several rounds of nebulizer treatments without any success Patient denies chest pain, palpitation, cough, abdominal pain, hematochezia, dysuria, frequency, focal weakness, dysarthria, fever chills, polydipsia polyuria, hot or cold intolerance, easy bruisability, or rash or bleeding from mucosal membrane, rhinorrhea, epistaxis, earache, tinnitus, blurry vision, eye discharge, anxiety, depression. Other review of systems negative Discharge diagnosis and treatment course * COPD Exacerbation * She was started on IV steroids and subsequently tapered down gradually. Pulmonary did see the patient and recommend a slow taper outpatient for about 12 days. Patient did use BiPAP about 2 days and on that last night did not require BiPAP. She also was prescribed a critical steroids for chronic nasal drip. She is to follow with pulmonary discharge. * Uncontrolled HTN * Patient reported that she takes losartan 300 mg at home with still on control blood pressure we did reduce it to 100 mg daily and started her on hydralazine with better control. * Diabetes Mellitus type 2-Uncontrolled * This is adequately controlled with insulin and adjusted for steroid. * Leukocytosis- Resolved * Chronic rhinorrhea * started on inhaled nasal spray * Acute on chronic hypoxic respiratory failure * Chronically on oxygen at 2 L per nasal cannula. She will continue with her home O2 at nighttime. * Disposition: DC/TX HOME UNDER HOME HEALTH Time spent for discharge: 35 mins Core Measure Documentation - Palliative Care Palliative Care/ Comfort Measures: Not Applicable - Core Measures Any of the following diagnoses?: none - VTE Discharge Requirements Deep Vein Thrombosis/Pulmonary Embolism Present on Admission: No Exam - Physical Exam Narrative exam: VITAL SIGNS: Reviewed. GENERAL: The patient appeared well nourished and normally developed. In mild respiratory distress Vital signs as documented. HEAD: No signs of head trauma. EYES: Pupils are equal. Extraocular motions intact. EARS: Hearing grossly intact. MOUTH: Oropharynx is normal. NECK: No adenopathy, no JVD. CHEST: Chest with expiratory wheezing bilaterally improving. No rales or rhonchi. CARDIAC: Regular rate and rhythm. S1 and S2, without murmurs, gallops, or rubs. VASCULAR: No Edema. Peripheral pulses normal and equal in all extremities. ABDOMEN: Soft, without detectable tenderness. No sign of distention. No rebound or guarding, and no masses palpated. Bowel Sounds normal. MUSCULOSKELETAL: Good range of motion of all major joints. Extremities without clubbing, cyanosis or edema. NEUROLOGIC EXAM: Alert and oriented x 3. No focal sensory or strength deficits. Speech normal. Follows commands. PSYCHIATRIC: Mood normal. SKIN: Age appropriate wrinkles and blemishes. - Constitutional Vitals: Temp Pulse Resp BP Pulse Ox 98.2 F 78 20 142/64 100 09/11/16 08:00 09/11/16 08:00 09/11/16 08:00 09/11/16 08:00 09/11/16 08:00 Plan Activity: advance as tolerated, fall precautions Diet: low fat, low salt Durable Medical Equipment Needed Upon Discharge: Oxygen (PORTOABLE OXYGEN CONCERNTRATOR 2LPM AT BEDTIME) Follow up with: KEVIN ROMERO MD [Primary Care Provider] - 3-5 Days WING ENGLISH MD [Staff Physician] - 7 Days Prescriptions: hydrALAZINE [Apresoline TAB] 50 mg PO Q8HR #90 tablet predniSONE [Deltasone] 10 mg PO .TAPER #48 tab Fluticasone [Flonase] 100 mcg NS QDAY #1 bottle Azithromycin [Zithromax TAB] 500 mg PO QDAY #3 tablet
[2016-09-11] MEDS: NOVOLOG SUB-Q SCH ×2 (09:51→12:01)
[2016-09-11] MEDS: LOVENOX SUB-Q SCH (10:26)
[2016-09-11] MEDS: FLONASE NS SCH (10:27)
[2016-09-11] MEDS: COZAAR PO SCH (10:28)
[2016-09-11] MEDS: ZITHROMAX PO SCH (10:29)
--- NOTE | 2016-09-11 11:30 | Progress Note ---
Assessment and Plan 71 y/o female with acute respiratory failure thought secondary to COPD exacerbation. 1. No objection to discharge from a pulmonary standpoint. Subjective Date of service: 09/11/16 Interval history: No acute events. Ready for discharge Objective Vital Signs - 12hr 09/11/16 09/11/16 09/11/16 01:00 02:22 02:28 Temperature 97.9 F Pulse Rate 84 Pulse Rate [ 89 Apical] Pulse Rate [ 84 84 Posterior Bilateral Throughout] Pulse Rate [ Right Radial] Respiratory 20 19 Rate Respiratory 20 16 Rate [Posterior Bilateral Throughout] Blood Pressure Blood Pressure 138/66 [Right Arm] O2 Sat by Pulse 97 99 99 Oximetry 09/11/16 09/11/16 09/11/16 05:37 06:00 08:00 Temperature 98.1 F 98.2 F Pulse Rate 77 Pulse Rate [ Apical] Pulse Rate [ Posterior Bilateral Throughout] Pulse Rate [ 77 78 Right Radial] Respiratory 20 20 Rate Respiratory Rate [Posterior Bilateral Throughout] Blood Pressure 145/65 Blood Pressure 145/65 142/64 [Right Arm] O2 Sat by Pulse 100 100 Oximetry 09/11/16 10:28 Temperature Pulse Rate 78 Pulse Rate [ Apical] Pulse Rate [ Posterior Bilateral Throughout] Pulse Rate [ Right Radial] Respiratory Rate Respiratory Rate [Posterior Bilateral Throughout] Blood Pressure 142/64 Blood Pressure [Right Arm] O2 Sat by Pulse Oximetry Constitutional: alert Eyes: non-icteric ENT: oropharynx moist Neck: supple Ascultation: Bilateral: wheezes Cardiovascular: regular rate and rhythm Gastrointestinal: normoactive bowel sounds, soft, non-distended Integumentary: normal Extremities: no cyanosis CBC and BMP: 09/08/16 05:05 09/08/16 05:05 Abnormal lab findings: Abnormal Labs 09/08/16 09/08/16 09/08/16 05:05 05:05 05:05 Lymph % (Auto) 10.6 L Lymph # 0.9 L Seg Neutrophils % 84.3 H Chloride 97.8 L Carbon Dioxide 31 H Glucose 197 H POC Glucose CK-MB (CK-2) Rel Index 4.3 H 09/08/16 09/08/16 09/08/16 07:17 11:15 15:59 Lymph % (Auto) Lymph # Seg Neutrophils % Chloride Carbon Dioxide Glucose POC Glucose 152 H 194 H 188 H CK-MB (CK-2) Rel Index 09/08/16 09/09/16 09/09/16 20:57 07:01 11:52 Lymph % (Auto) Lymph # Seg Neutrophils % Chloride Carbon Dioxide Glucose POC Glucose 196 H 161 H 149 H CK-MB (CK-2) Rel Index 09/09/16 09/09/16 09/10/16 16:09 20:49 08:03 Lymph % (Auto) Lymph # Seg Neutrophils % Chloride Carbon Dioxide Glucose POC Glucose 138 H 170 H 175 H CK-MB (CK-2) Rel Index 09/10/16 09/10/16 09/10/16 11:17 16:20 22:13 Lymph % (Auto) Lymph # Seg Neutrophils % Chloride Carbon Dioxide Glucose POC Glucose 177 H 131 H 249 H CK-MB (CK-2) Rel Index 09/11/16 07:37 Lymph % (Auto) Lymph # Seg Neutrophils % Chloride Carbon Dioxide Glucose POC Glucose 150 H CK-MB (CK-2) Rel Index
[2016-09-11] MEDS: PROVENTIL IH PRN (13:01)
== END 2016-09-11 13:50 | disposition home health service (06) | DRG 189 ==
LOC: ED 18:01 → 3A 22:47 → 2B-SURG 09-08 02:52
PROVIDERS: ADMIT Internal Medicine; ATTEND Internal Medicine
PROC: 5A09457 Assistance with Respiratory Ventilation, 24-96 Consecutive Hours, Continuous Positive Airway Pressure (ICD-10-PCS; principal; 2016-09-08)
DX: J96.21 Acute and chronic respiratory failure with hypoxia (principal); J44.0 Chronic obstructive pulmonary disease with (acute) lower respiratory infection; J45.901 Unspecified asthma with (acute) exacerbation; J44.1 Chronic obstructive pulmonary disease with (acute) exacerbation; I10 Essential (primary) hypertension; D72.829 Elevated white blood cell count, unspecified; J20.9 Acute bronchitis, unspecified; F17.210 Nicotine dependence, cigarettes, uncomplicated; E11.65 Type 2 diabetes mellitus with hyperglycemia; J34.89 Other specified disorders of nose and nasal sinuses; Z99.81 Dependence on supplemental oxygen; Z88.8 Allergy status to other drugs, medicaments and biological substances; Z91.018 Allergy to other foods; Z79.899 Other long term (current) drug therapy; Z82.49 Family history of ischemic heart disease and other diseases of the circulatory system
CPT/HCPCS: 36415; 71010; 80048; 82550; 82553; 82962; 84484; 85025; 87070; 87205; 90732; 93005; 93010; 94640; 94660; 94760; 96365; 96375; J0360; J1650; J1815; J2920; J2930; J3475

== ENCOUNTER 2016-10-09 12:44 | Emergency (ER) | payer MEDICARE ==
[2016-10-09 18:16] LABS: Basophils % (Auto) 0.3 % (0.0-1.8); Eosinophils % (Auto) 4.9 % (0.0-4.3); Hematocrit 36.1 % (30.3-42.9); Hemoglobin 11.9 gm/dl (10.1-14.3); Mean Corpuscular HGB Conc 33 % (30-34); Mean Corpuscular Hemoglobin 30 pg (28-32); Mean Corpuscular Volume 91 fl (79-97); Platelet Count 283 K/mm3 (140-440); Red Blood Count 3.96 M/mm3 (3.65-5.03); Red Cell Distribution Width 14.1 % (13.2-15.2); White Blood Count 15.7 K/mm3 (4.5-11.0)
--- NOTE | 2016-10-09 18:23 | Emergency Department Report ---
HPI - General Time Seen by Provider: 10/09/16 17:45 - HPI HPI: 71F PMH COPD, HTN, DMT2 BIB daughter due to c/o mild erractic behavvior at home yesterday and possible new tremor in hands which may have begun over last several days. ED Past Medical Hx - Past Medical History Hx Hypertension: Yes Hx Diabetes: Yes Hx Asthma: Yes Hx COPD: Yes - Social History Smoking Status: Former Smoker - Medications Home Medications: Home Medications Medication Instructions Recorded Confirmed Last Taken Type Cetirizine HCl [ZyrTEC] 10 mg PO DAILY PRN 09/22/14 09/07/16 Unknown History ALBUTEROL NEB's [Proventil 0.083% 2.5 mg INHALATION Q4-6H PRN #100 ml 09/25/14 09/07/16 Unknown Rx NEBS] Albuterol Sulfate [Proventil HFA] 1 - 2 puff IH Q4H PRN #1 hfa.aer.ad 09/25/14 09/07/16 Unknown Rx predniSONE [Deltasone] 60 mg PO QDAY #20 tablet 01/08/15 09/07/16 Unknown Rx Losartan 100 mg PO DAILY 09/07/16 09/07/16 Unknown History Zocor TAB 10 mg PO HS 09/07/16 09/07/16 Unknown History Azithromycin [Zithromax TAB] 500 mg PO QDAY #3 tablet 09/11/16 Unknown Rx Fluticasone [Flonase] 100 mcg NS QDAY #1 bottle 09/11/16 Unknown Rx hydrALAZINE [Apresoline TAB] 50 mg PO Q8HR #90 tablet 09/11/16 Unknown Rx predniSONE [Deltasone] 10 mg PO .TAPER #48 tab 09/11/16 Unknown Rx ALBUTEROL Inhaler [ProAir HFA 2 puff IH QID PRN #1 inhalation 10/09/16 Unknown Rx Inhaler] Acetaminophen [Acetaminophen TAB] 500 mg PO Q6HR PRN #30 tablet 10/09/16 Unknown Rx Levofloxacin [Levaquin] 750 mg PO QDAY #5 tablet 10/09/16 Unknown Rx ED Review of Systems ROS: Stated complaint: Other details as noted in HPI Physical Exam - Physical Exam Vital Signs: Vital Signs 10/09/16 17:10 Temperature 98.8 F Pulse Rate 101 H Respiratory 18 Rate Blood Pressure 138/72 [Left] O2 Sat by Pulse 94 Oximetry General: General: Well appearing, well nourished, in no distress. Oriented x 3, normal mood and affect . Ambulating without difficulty. Skin: Good turgor, no rash, unusual bruising or prominent lesions Hair: Normal texture and distribution. Nails: Normal color, no deformities Eyes: Visual acuity intact, conjunctiva clear, sclera non-icteric, EOM intact, PERRLA Ears: EACs clear, TMs translucent & mobile, ossicles nl appearance, hearing intact. Nose: No external lesions, mucosa non-inflamed, septum and turbinates normal Mouth: Mucous membranes moist, no mucosal lesions. Neck: Supple, without lesions, bruits, or adenopathy, thyroid non-enlarged and non-tender Heart: No cardiomegaly or thrills; regular rate and rhythm, no murmur or gallop Lungs: Minor wheezing bilaterally Abdomen: Minor suprapubic discomfort on palpation Bowel sounds normal, no tenderness 4 quadrants, organomegaly, masses, or hernia Back: Spine normal without deformity or tenderness, no CVA tenderness Extremities: No amputations or deformities, cyanosis, edema or varicosities, peripheral pulses intact, no peripheral edema. Neurologic: CN 2-12 normal. Sensation to pain, touch, and proprioception normal. DTRs normal in upper and lower extremities. No pathologic reflexes. Psychiatric: Oriented X3, intact recent and remote memory, judgment and insight , normal mood and affect. Visible intention tremor all patient is moving upper extremities, no resting tremor area strength 5 out of 5 upper and lower extremities. ED Course Vital Signs 10/09/16 17:10 Temperature 98.8 F Pulse Rate 101 H Respiratory 18 Rate Blood Pressure 138/72 [Left] O2 Sat by Pulse 94 Oximetry ED Medical Decision Making - Lab Data Result diagrams: 10/09/16 18:05 10/09/16 18:05 - Medical Decision Making A/P: Possible new onset tremors, increased urinary frequency, UTI, mild COPD exacerbation 1-patient has mild leukocytosis and leukocytes in urine on UA. BMP within normal limits 2-patient is awake alert and oriented 3 has seemingly returned to her baseline mental status and behavior as per family no fever, vital signs within normal limits 3-as patient was recently in hospital and has possible UTI based on UA we'll cover empirically with Levaquin 750 by mouth 5 days 4-albuterol when necessary, Tylenol when necessary. Patient received 1 DuoNeb treatment and states that her breathing feels significantly better, no wheezing on clinical exam before discharge 5-I discussed plan of care with the patient's family and patient at bedside. I advised him to follow up as soon as possible this week with primary medical doctor area patient states she does not currently have one so I will refer her. As family had also reported possible new tremor in hands with movement I will refer her to neurology, I discussed this with Dr. Walters. Patient has a very fine intention tremor on clinical exam. I advised her to return to the ED MADAY for any inability to tolerate by mouth, worsening dysuria, fever or chills, any worsening shortness of breath Critical care attestation.: If time is entered above; I have spent that time in minutes in the direct care of this critically ill patient, excluding procedure time. ED Disposition Clinical Impression: UTI (urinary tract infection) Qualifiers: Urinary tract infection type: acute cystitis Hematuria presence: without hematuria Qualified Code(s): N30.00 - Acute cystitis without hematuria Disposition: DISCHARGED TO HOME OR SELFCARE Is pt being admited?: No Does the pt Need Aspirin: No Condition: Stable Instructions: Urinary Tract Infection in Women (ED), Chronic Obstructive Pulmonary Disease (ED) Additional Instructions: I advised patient to call for follow-up with primary care and neurology as soon as possible. Strict instructions to return to the ED for any worsening fever chills shortness of breath or dysuria any abnormal behaviors or worsening tremors. Patient and family agreed to these instructions and plan. Prescriptions: Acetaminophen [Acetaminophen TAB] 500 mg PO Q6HR PRN #30 tablet PRN Reason: Fever ALBUTEROL Inhaler [ProAir HFA Inhaler] 2 puff IH QID PRN #1 inhalation PRN Reason: Shortness Of Breath Levofloxacin [Levaquin] 750 mg PO QDAY #5 tablet Referrals: KEVIN ROMERO MD [Primary Care Provider] - 3-5 Days SIERRA BETHEA MD [Staff Physician] - 3-5 Days ITALO FERNANDES MD [Referring] - 3-5 Days [facility] [Outside] - 3-5 Days Time of Disposition: 22:12
[2016-10-09 18:41] LABS: Albumin 3.6 g/dL (3.9-5); Alkaline Phosphatase 133 units/L (35-129); BUN/Creatinine Ratio 15.71; Bilirubin,Direct 0.2 mg/dL (0-0.2); Bilirubin,Indirect 0.4 mg/dL; Bilirubin,Total 0.6 mg/dL (0.1-1.2); Blood Urea Nitrogen 11 mg/dL (7-17); Calcium 9.4 mg/dL (8.4-10.2); Carbon Dioxide 30 mmol/L (22-30); Chloride 94.5 mmol/L (98-107); Glucose 104 mg/dL (65-100); Magnesium 2.1 mg/dL (1.7-2.3); Potassium 4.7 mmol/L (3.6-5.0); Sodium 136 mmol/L (137-145); Total Protein 7.1 g/dL (6.3-8.2)
[2016-10-09 18:49] LABS: Anion Gap 16 mmol/L
[2016-10-09 18:57] LABS: Alanine Aminotransferase 872 units/L (7-56)
[2016-10-09] MEDS ORDERED: PROVENTIL IH ONE (19:52)
[2016-10-09 21:00] LABS: Bacteria,Urine 4+ /HPF (Negative); Bilirubin,Urine NEG (Negative); Blood,Urine SM (Negative); Ketones,Urine TR mg/dL (Negative); Leukocyte Esterase,Urine TR (Negative); Mucus,Urine 2+ /HPF; Nitrite,Urine NEG (Negative); RBC,Urine < 1.0 /HPF (0.0-6.0)
[2016-10-09 22:43] VITALS: BP 131/62
--- NOTE | 2016-10-10 08:03 | XRay Report ---
ROUTINE CHEST, TWO VIEWS: HISTORY: Fever, chills. The trachea, heart, mediastinal contour, lung hui and bony thorax are unremarkable. IMPRESSION: Unremarkable chest x-ray. No significant change since 09/07/16.
== END 2016-10-09 22:43 | disposition home or self-care (01) ==
LOC: ED 12:44
DX: N30.00 Acute cystitis without hematuria (principal); I10 Essential (primary) hypertension; E11.9 Type 2 diabetes mellitus without complications; J45.909 Unspecified asthma, uncomplicated; J44.9 Chronic obstructive pulmonary disease, unspecified; Z87.891 Personal history of nicotine dependence
CPT/HCPCS: 36415; 71020; 80048; 80074; 81001; 83735; 85025; 87076; 87086; 87186; 94640

== ENCOUNTER 2018-11-13 15:01 | Emergency (ER) | payer MEDICARE ==
[2018-11-13 15:30] VITALS: BP 158/74
--- NOTE | 2018-11-13 15:33 | Emergency Department Report ---
Chief Complaint: High BP Stated Complaint: HYPERTENSION Time Seen by Provider: 11/13/18 15:28 - HPI History of Present Illness: This is a 73 y.o. female that presents to the ED with headache and right sided facial pain. Patient is on home oxygen 3L. - ROS Review of Systems: right sided facial pain and headache - Exam Vital Signs: Vital Signs 11/13/18 15:28 Temperature 98.1 F Pulse Rate 114 H Respiratory 20 Rate Blood Pressure 158/74 O2 Sat by Pulse 99 Oximetry MSE screening note: Focused history and physical exam performed. Due to findings the following was ordered: labs Main Ed for further evaluation ED Disposition for MSE Condition: Stable
[2018-11-13 16:08] LABS: Basophils # (Auto) 0.1 K/mm3 (0.0-0.1); Basophils % (Auto) 0.4 % (0.0-1.8); Eosinophils # (Auto) 0.3 K/mm3 (0.0-0.4); Eosinophils % (Auto) 2.6 % (0.0-4.3); Hematocrit 39.8 % (30.3-42.9); Hemoglobin 13.3 gm/dl (10.1-14.3); Lymphocytes # (Auto) 2.6 K/mm3 (1.2-5.4); Lymphocytes % (Auto) 20.8 % (13.4-35.0); Mean Corpuscular HGB Conc 33 % (30-34); Mean Corpuscular Volume 91 fl (79-97); Monocytes # (Auto) 0.8 K/mm3 (0.0-0.8); Monocytes % (Auto) 6.3 % (0.0-7.3); Platelet Count 228 K/mm3 (140-440); Red Blood Count 4.38 M/mm3 (3.65-5.03); Red Cell Distribution Width 13.1 % (13.2-15.2)
[2018-11-13 16:31] LABS: Alanine Aminotransferase 14 units/L (7-56); Albumin 4.1 g/dL (3.9-5); BUN/Creatinine Ratio 13; Blood Urea Nitrogen 9 mg/dL (7-17); Calcium 9.4 mg/dL (8.4-10.2); Hemolysis Index 10
== END 2018-11-13 19:57 | disposition left against medical advice (07) ==
LOC: ED 15:01
DX: R51 Headache (principal); Z53.21 Procedure and treatment not carried out due to patient leaving prior to being seen by health care provider
CPT/HCPCS: 36415; 80053; 85025

== ENCOUNTER 2018-12-03 23:28 | Emergency (ER) | payer MEDICARE ==
--- NOTE | 2018-12-04 00:28 | Cat Scan Report ---
PROCEDURE: CT HEAD/BRAIN WO CON TECHNIQUE: Computerized tomography of the head was performed without contrast material. CT DOSE LENGTH PRODUCT: 954.7 mGycm HISTORY: altered mental status COMPARISONS: None . FINDINGS: Skull and scalp: Normal . Paranasal sinuses: Normal . Ventricles and subarachnoid spaces: Normal . Cerebrum: No evidence of hemorrhage, acute infarction or mass . Cerebellum and brainstem: No evidence of hemorrhage, acute infarction or mass . Vasculature: Normal . Other: None . ASPECTS: 10 IMPRESSION: There is no evidence of an acute intracranial process . This document is electronically signed by Rosalva Garcia DO., December 04 2018 12:26:28 AM ET
--- NOTE | 2018-12-04 00:52 | Emergency Department Report ---
HPI - General Chief Complaint: Altered Mental Status - HPI HPI: Room 7 The patient is 73-year-old female presenting with a chief complaint of altered mental status. Family states patient has been complaining of a headache for the past 2 weeks. Yesterday the patient became disoriented and it worsened tonight prompting family to bring the patient into the ED. Patient denies complaints. However, patient is unable to recognize her daughter brought her to the emergency department stating that she does not know her name Location: Mental status Duration: [See above] Quality: [See above] Severity: Moderate Modifying factors: [see above] Context: [see above] Mode of transportation: [not driving] ED Past Medical Hx - Past Medical History Hx Hypertension: Yes Hx Diabetes: Yes Hx COPD: Yes (O2 when necessary) - Surgical History Past Surgical History?: No - Social History Smoking Status: Former Smoker (none 3 years) Substance Use Type: None - Medications Home Medications: Home Medications Medication Instructions Recorded Confirmed Last Taken Type Losartan 100 mg PO DAILY 09/07/16 12/04/18 Unknown History ALBUTEROL Inhaler (OR & NICU) 2 puff IH QID PRN #1 inhalation 10/09/16 12/04/18 Unknown Rx [ProAir HFA Inhaler] Fluticasone/Salmeterol [Advair 1 tab INHALATION DAILY 12/04/18 12/04/18 Unknown History 500-50 Diskus] Simvastatin 10 mg PO HS 12/04/18 12/04/18 Unknown History metFORMIN [Glucophage] 1 tab PO BID 12/04/18 12/04/18 Unknown History ED Review of Systems ROS: Stated complaint: AMS Other details as noted in HPI Constitutional: no symptoms reported Eyes: denies: eye pain ENT: denies: throat pain Respiratory: no symptoms reported Cardiovascular: denies: chest pain Endocrine: no symptoms reported Gastrointestinal: denies: abdominal pain Genitourinary: denies: dysuria Musculoskeletal: denies: back pain Neurological: headache Physical Exam - Physical Exam Physical Exam: GENERAL: The patient is well-developed well-nourished female sitting on stretcher not appearing to be in acute distress. [] HEENT: Normocephalic. Atraumatic. Extraocular motions are intact. Patient has moist mucous membranes. NECK: Supple. No meningitic signs are noted. Trachea midline CHEST/LUNGS: Clear to auscultation. There is no respiratory distress noted. HEART/CARDIOVASCULAR: Regular. There is no tachycardia. There is no gallop rub or murmur. ABDOMEN: Abdomen is soft, nontender. Patient has normal bowel sounds. There is no abdominal distention. SKIN: There is no rash. There is no edema. There is no diaphoresis. NEURO: The patient is awake and alert but disoriented to place and family. The patient is intermittently cooperative. The patient has no focal neurologic deficits. The patient has normal speech. Double Surface Operator equal bilaterally. MUSCULOSKELETAL: There is no evidence of acute injury. ED Course - Consultations Consultation #1: 12/04/18 03:44 [facility] transfer line called- case discussed with neuro business records manager Dr. Del Angel and neurosurgeon Dr. Hammond. Requests LP be performed to assess for the presence of xanthochromia to assist in determining the appropriate floor for admission - Lumbar Puncture Consent Obtained: verbal consent Time Out Performed: No Indication for Procedure: change in mental status, R/O SA bleed Patient Position: left lateral decubitus Skin Prep: Povidone-Iodine 1% Local Anesthetic Used: Lidocaine 1% Amount of anesthesia used (mls): 5 Spinal Needle Gauge: 20G Spinal Needle Length: 3.5in Interspace Used: L4-L5 Fluid Initially Obtained: clear Complications: none Patient Tolerated Procedure: well ED Medical Decision Making - Lab Data Result diagrams: 12/04/18 01:06 12/04/18 00:26 - EKG Data -: EKG Interpreted by Me EKG shows normal: sinus rhythm Rate: normal - EKG Data When compared to previous EKG there are: previous EKG unavailable - Radiology Data Radiology results: report reviewed (CT head, CTA brain, CTA neck), image reviewed (CT head, CTA brain, CTA neck) Findings [facility] [address] [place] [address] Cat Scan Report Signed Patient: OBI MELENDEZ MR#: [id number] : 1945 Acct:[id number] Age/Sex: 73 / F ADM Date: 12/03/18 Loc: ED Attending Dr: Ordering Physician: BRE LUCIO MD Date of Service: 12/04/18 Procedure(s): CT head/brain wo con Accession Number(s): [id number] cc: BRE LUCIO MD PROCEDURE: CT HEAD/BRAIN WO CON TECHNIQUE: Computerized tomography of the head was performed without contrast material. CT DOSE LENGTH PRODUCT: 954.7 mGycm HISTORY: altered mental status COMPARISONS: None . FINDINGS: Skull and scalp: Normal . Paranasal sinuses: Normal . Ventricles and subarachnoid spaces: Normal . Cerebrum: No evidence of hemorrhage, acute infarction or mass . Cerebellum and brainstem: No evidence of hemorrhage, acute infarction or mass . Vasculature: Normal . Other: None . ASPECTS: 10 IMPRESSION: There is no evidence of an acute intracranial process . This document is electronically signed by Rosalva Garcia DO., December 04 2018 12:26:28 AM ET Transcribed By: [facility] Dictated By: ROSALVA GARCIA MD Electronically Authenticated By: ROSALVA GARCIA MD Signed Date/Time: 12/04/18 0 028 DD/ 0011 TD/TT: 12/04/18 0021 Findings [facility] [address] [place] [address] Cat Scan Report Signed Patient: OBI MELENDEZ MR#: [id number] : 1945 Acct:[id number] Age/Sex: 73 / F ADM Date: 12/03/18 Loc: ED Attending Dr: Ordering Physician: BRE LUCIO MD Date of Service: 12/04/18 Procedure(s): CT angio head Accession Number(s): [id number] cc: BRE LUCIO MD PROCEDURE: CT ANGIO HEAD TECHNIQUE: A CT angiogram was obtained of the brain following the intravenous injection of iodinated contrast. Rotational, sagittal, and coronal MIP reconstructions were reviewed. HISTORY: altered mental status COMPARISONS: CTA of the neck of 12/04/2018 FINDINGS: In the posterior fossa both vertebral and basilar arteries are widely patent. Both posterior cerebral arteries are normal in caliber. 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 It measures 14 mm x 8.9 mm x 7.4 mm. The left anterior cerebral and left middle cerebral artery branches otherwise appear normal. On the right side the right cavernous sinus and right supraclinoid internal carotid artery opacify normally with normal visualization of the right anterior and right middle cerebral branches. There are no additional aneurysms identified. The dural venous sinuses enhance normally. In the posterior fossa there is asymmetric enlargement of the right sigmoid sinus representing a normal variant. 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 No additional aneurysm or enhancing lesions. No evidence of arterial thrombosis or stenosis. This document is electronically signed by Emmy Morales MD., December 04 2018 03:08:58 AM ET Tr anscribed By: RB Dictated By: EMMY MORALES MD Electronically Authenticated By: EMMY MORALES MD Signed Date/Time: 12/04/18310 DD/ 2 TD/TT: 12/04/18252 Findings [facility] [address] [place] [address] Cat Scan Report Signed Patient: OBI MELENDEZ MR#: [id number] : 1945 Acct:[id number] Age/Sex: 73 / F ADM Date: 12/03/18 Loc: ED Attending Dr: Ordering Physician: BRE LUCIO MD Date of Service: 12/04/18 Procedure(s): CT angio neck Accession Number(s): [id number] cc: BRE LUCIO MD PROCEDURE: CT ANGIO NECK TECHNIQUE: A CT angiogram was performed following the intravenous injection of iodinated contrast. Rotational, sagittal, and coronal MIP reconstructions were reviewed. HISTORY: altered mental status COMPARISONS: CT brain 12/04/2018. FINDINGS: Both vertebral arteries are widely patent and are codominant. The left common carotid artery is widely patent. There is considerable calcified plaque in the distal left common carotid artery extending into the bifurcation. There is approximately a 40% stenosis of the proximal left ICA by plaque formation. The right common carotid artery is widely patent with minimal calcific plaque in the bifurcation. Both internal carotid arteries otherwise are widely patent. There is no evidence of dissection. On the most cephalad image there is a lobulated aneurysm along the left side of the [place] measuring 14.6 mm x 9.3 mm. The lung apices are clear. The thyroid gland appears normal. There are no masses or adenopathy. The airway appears normal. The visualized sinuses are clear. The mastoid air cells are well-pneumatized. The skeletal structures reveal extensive arthritic changes in the cervical spine. IMPRESSION: Calcific plaque in both carotid bifurcations. Approximately a 40% stenosis of the proximal left ICA by plaque formation. Bilaterally patent codominant vertebral arteries. Lobulated aneurysm on the most cephalad image along the left side of the [place] measuring 14.6 mm x 9.3 mm.. This document is electronically signed by Emmy Morales MD., December 04 2018 02:59:44 AM ET Transcribed By: RB Dictated By: EMMY MORALES MD Electronically Authenticated By: EMMY MORALES MD Signed Date/Time: 12/04/18300 DD/ 9 TD/TT: 12/04/18249 - Differential Diagnosis CVA, ICH, encephalopathy Critical care attestation.: If time is entered above; I have spent that time in minutes in the direct care of this critically ill patient, excluding procedure time. ED Disposition Clinical Impression: Altered mental status Disposition: DC/TX-70 ANOTHER TYPE HLTHCARE Is pt being admited?: Yes Does the pt Need Aspirin: Yes Condition: Fair Referrals: PRIMARY MD NICK [Primary Care Provider] - 3-5 Days Time of Disposition: 03:25 (awaiting acceptance)
[2018-12-04] MEDS ORDERED: ASPIRIN PO ONE (00:58)
[2018-12-04 01:15] LABS: Alanine Aminotransferase 14 units/L (7-56); Albumin 4.1 g/dL (3.9-5); BUN/Creatinine Ratio 9; Blood Urea Nitrogen 8 mg/dL (7-17); Calcium 9.6 mg/dL (8.4-10.2); Hemolysis Index 12
[2018-12-04 01:35] LABS: Basophils # (Auto) 0.1 K/mm3 (0.0-0.1); Basophils % (Auto) 0.8 % (0.0-1.8); Eosinophils # (Auto) 0.1 K/mm3 (0.0-0.4); Hematocrit 40.4 % (30.3-42.9); Hemoglobin 13.6 gm/dl (10.1-14.3); Lymphocytes # (Auto) 2.4 K/mm3 (1.2-5.4); Lymphocytes % (Auto) 19.6 % (13.4-35.0); Mean Corpuscular HGB Conc 34 % (30-34); Mean Corpuscular Volume 90 fl (79-97); Monocytes # (Auto) 0.9 K/mm3 (0.0-0.8); Monocytes % (Auto) 7.3 % (0.0-7.3); Platelet Count 247 K/mm3 (140-440); Red Blood Count 4.49 M/mm3 (3.65-5.03); Red Cell Distribution Width 13.1 % (13.2-15.2)
[2018-12-04 01:49] LABS: INR 0.93 (0.87-1.13)
[2018-12-04 01:50] LABS: Partial Thromboplastin Time 31.5 Sec. (24.2-36.6)
[2018-12-04 02:08] LABS: Free T4 (Free Thyroxine) 1.18 ng/dL (0.76-1.46)
--- NOTE | 2018-12-04 03:01 | Cat Scan Report ---
PROCEDURE: CT ANGIO NECK TECHNIQUE: A CT angiogram was performed following the intravenous injection of iodinated contrast. R otational, sagittal, and coronal MIP reconstructions were reviewed. HISTORY: altered mental status COMPARISONS: CT brain 12/04/2018. FINDINGS: Both vertebral arteries are widely patent and are codominant. The left common carotid artery is widel y patent. There is considerable calcified plaque in the distal left common carotid artery extending i nto the bifurcation. There is approximately a 40% stenosis of the proximal left ICA by plaque formati on. The right common carotid artery is widely patent with minimal calcific plaque in the bifurcation. Both internal carotid arteries otherwise are widely patent. There is no evidence of dissection. On t he most cephalad image there is a lobulated aneurysm along the left side of the [place] bon[place] uring 14.6 mm x 9.3 mm. The lung apices are clear. The thyroid gland appears normal. There are no masses or adenopathy. The a irway appears normal. The visualized sinuses are clear. The mastoid air cells are well-pneumatized. T he skeletal structures reveal extensive arthritic changes in the cervical spine. IMPRESSION: Calcific plaque in both carotid bifurcations. Approximately a 40% stenosis of the proximal left ICA b y plaque formation. Bilaterally patent codominant vertebral arteries. Lobulated aneurysm on the most cephalad image along the left side of the [place] measuring 1 4.6 mm x 9.3 mm.. This document is electronically signed by iTn Morales MD., December 04 2018 02:59:44 AM ET
--- NOTE | 2018-12-04 03:11 | Cat Scan Report ---
PROCEDURE: CT ANGIO HEAD TECHNIQUE: A CT angiogram was obtained of the brain following the intravenous injection of iodinated contrast. Rotational, sagittal, and coronal MIP reconstructions were reviewed. HISTORY: altered mental status COMPARISONS: CTA of the neck of 12/04/2018 FINDINGS: In the posterior fossa both vertebral and basilar arteries are widely patent. Both posterior cerebral arteries are normal in caliber. 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 It measures 14 mm x 8.9 mm x 7.4 mm. The left an terior cerebral and left middle cerebral artery branches otherwise appear normal. On the right side t he right cavernous sinus and right supraclinoid internal carotid artery opacify normally with normal visualization of the right anterior and right middle cerebral branches. There are no additional aneur ysms identified. The dural venous sinuses enhance normally. In the posterior fossa there is asymmetri c enlargement of the right sigmoid sinus representing a normal variant. 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 No additional aneurysm or enhancing lesions. No evidence of arterial thrombosis or stenosis. This document is electronically signed by Tin Morales MD., December 04 2018 03:08:58 AM ET
[2018-12-04] MEDS ORDERED: XYLOCAINE 1% 20 mL INFILTRATI ONE (04:00)
[2018-12-04] MEDS ORDERED: APRESOLINE IV ONE ×2 (04:20→06:50)
[2018-12-04] MEDS ORDERED: XYLOCAINE 1% 20 mL ONE (04:21)
[2018-12-04] MEDS ORDERED: APRESOLINE ONE (04:24)
[2018-12-04 04:51] LABS: Bilirubin,Urine NEG (Negative); Blood,Urine NEG (Negative); Color,Urine Straw (Yellow); Protein,Urine <15 mg/dL mg/dL (Negative)
[2018-12-04 05:39] LABS: Glucose,CSF 65 mg/dL
[2018-12-04 06:12] LABS: Appearance,CSF Clear
[2018-12-04 06:13] LABS: Red Blood Cell,CSF 14 /mm3 (0-0); White Blood Cell,CSF 115 /mm3 (1-10)
[2018-12-04 06:16] LABS: Appearance,CSF Clear; Red Blood Cell,CSF 7 /mm3 (0-0); White Blood Cell,CSF 86 /mm3 (1-10)
[2018-12-04] MEDS ORDERED: ROCEPHIN/NS 2 GM/100 ML 2 GM/100 ML BAG IV ONE (06:27)
[2018-12-04] MEDS ORDERED: KEPPRA 1,000 MG/NS 0.75% 100ML 1,000 MG/100 ML BAG IV ONE (06:47)
[2018-12-04 07:26] LABS: Basophils CSF 0 %; Total Cells Counted 100 /mm3
[2018-12-04 07:28] LABS: Basophils CSF 0 %; Total Cells Counted 100 /mm3
[2018-12-04 08:36] VITALS: BP 145/45
== END 2018-12-04 08:45 | disposition other institution (70) ==
LOC: ED 23:28
DX: R41.82 Altered mental status, unspecified (principal); I10 Essential (primary) hypertension; E11.9 Type 2 diabetes mellitus without complications; J44.9 Chronic obstructive pulmonary disease, unspecified; Z87.891 Personal history of nicotine dependence; Z79.899 Other long term (current) drug therapy; Z91.018 Allergy to other foods; Z88.8 Allergy status to other drugs, medicaments and biological substances
CPT/HCPCS: 36415; 62270; 70450; 70496; 70498; 80048; 80053; 81001; 82140; 82550; 82553; 82805; 82947; 82962; 84160; 84439; 84443; 84484; 85025; 85610; 85730; 87116; 89051; 93005; 93010; 96365; 96367; 96375; 96376; 99285; J0360; J0696; J1953; Q9967